=== PATIENT | female | born 1970 | race Caucasian/White ===

== ENCOUNTER 2016-07-26 09:23 | Emergency (ER) | payer OTHER ==
[~2016-07-26] VITALS: Ht 162.6 cm; Wt 82.2 kg
[~2016-07-26 09:23] MED LIST: ASCO1CAP3 PO; CALC-354 PO; CITA20TA4 PO; CYCL10TA6 PO; DICL75TA2 PO; SNT/10 PO
[2016-07-26 09:29] VITALS: TEMP 36.9; Ht 162.6 cm; Wt 82.2 kg
[2016-07-26] MEDS ORDERED: ALBUT/IPRATROP 3MG/0.5MG NEB 3 ML VIAL INH STA (09:45)
[2016-07-26] MEDS ORDERED: IBUPROFEN 600 MG TAB PO STA (09:45)
--- NOTE | 2016-07-26 09:50 | EMERGENCY ROOM VISIT NOTE ---
History Report prepared by Rosa: Ada Dunn Under the Supervision of: Dr. Lucian Bentley D.O. First contact with patient: 09:40 Chief Complaint: SORETHROAT Stated Complaint: COLD LIKE SYMPTOMS History of Present Illness The patient is a 45 year old female who presents to the Emergency Room with complaints of a persistent sore throat that began last week. She also complaints of a cough and chills. She has been taking over the counter cough medicine but did not take anything for her pain today. The patient's grandson was recently diagnosed with strep and her daughter was recently hospitalized for pneumonia. Past medical history includes asthma and a lung nodule. She is a former smoker. Denies runny nose, fever, nausea, vomiting, or other complaints. Source of History: patient Onset: last week Position: throat Quality: other (sore) Timing: other (persistent) Associated Symptoms: + chills, + cough, No fevers, No nausea, No vomiting Review of Systems See HPI for pertinent positives & negatives. A total of 10 systems reviewed and were otherwise negative. Past Medical & Surgical Medical Problems: (1) Carpal Tunnel Syndrome (2) Cervicalgia (3) Fracture of distal fibula Surgical Problems: (1) History of hysterectomy (2) Hx of cholecystectomy Family History No pertinent family history stated. Social History Smoking Status: Former Smoker Alcohol Use: occasionally Drug Use: none Occupation Status: employed Current/Historical Medications Scheduled Albuterol Hfa (Ventolin Hfa), 2 PUFFS INH BID Amoxicillin & Pot Clavulanate (Augmentin 875-125 mg), 875 MG PO BID Ascorbic Acid (Vitamin C), 500 MG PO DAILY Calcium Carbonate-Cholecalcife (Caltrate 600+D), 1 TAB PO DAILY Cetirizine HCl (Ra Cetirizine), 1 TAB PO DAILY Citalopram Hydrobromide (Citalopram Hydrobromide), 20 MG PO DAILY Cyanocobalamin (Cyanocobalamin), 1 DOSE SQ MONTHLY Diclofenac Sodium (Voltaren), 75 MG PO BID Ergocalciferol (Vitamin D), 1 CAP PO WK Fluticasone Prop/Salmeterol (Advair Diskus 250/50 60 Dose), 1 PUFF INH Q12 Trazodone Hcl (Trazodone), 25-50 MG PO HS Zaleplon (Sonata), 20 MG PO HS Scheduled PRN Oxycodone Immediate Rel Tab (Roxicodone Ir), 1-2 TAB PO Q4H PRN for Severe Pain Allergies Coded Allergies: No Known Allergies (Verified , 07/26/16) Physical Exam Vital Signs Date Time Temp Pulse Resp B/P Pulse Ox O2 Delivery O2 Flow Rate FiO2 07/26/16 11:42 75 18 118/76 07/26/16 10:45 82 16 115/85 96 Room Air 07/26/16 09:29 98 Room Air 07/26/16 09:29 36.9 86 17 123/85 97 Room Air Physical Exam GENERAL: Patient is awake, alert, and in no acute distress. Patient is resting comfortably and showing no signs of anxiety EYES: The conjunctivae are clear. The pupils are round and reactive. EARS, NOSE, MOUTH AND THROAT: Mucous membranes are moist. TMs are clear bilaterally. Nares are patent. Mild erythema in the posterior oropharynx. NECK: Mild anterior tenderness but no swelling and no significant cervical adenopathy. RESPIRATORY: Normal respiratory effort is noted there is no evidence of wheezing rhonchi or rales CARDIOVASCULAR: Regular rate and rhythm noted there no murmurs rubs or gallops normal S1 normal S2 GASTROINTESTINAL: The abdomen is soft. Bowel sounds are present in all quadrants. Abdomen is nontender MUSCULOSKELETAL/EXTREMITIES: There is no evidence of gross deformity full range of motion is noted in the hips and shoulders SKIN: There is no obvious evidence of any rash. There are no petechiae, pallor or cyanosis noted. NEUROLOGIC: Patient is awake alert and oriented x3 Medical Decision & Procedures ER Provider Diagnostic Interpretation: Radiology results as stated below per my review and radiologist interpretation: SOFT TISSUE NECK TECHNIQUE: AP and lateral soft tissue neck FINDINGS: Mild prominence of the submandibular soft tissues. No distention of the hypopharynx. The epiglottis is normal. Glottic and subglottic regions are unremarkable. IMPRESSION: Mild fullness of the submandibular soft tissues. Otherwise negative study Electronically signed by: Sukumar Arreola M.D. 07/26/2016 11:12 AM Dictated Date/Time: 07/26/2016 11:11 AM TWO VIEW CHEST CLINICAL HISTORY: Cough. FINDINGS: PA and lateral chest radiographs are obtained. No prior studies are available for comparison at the time of dictation. The cardiomediastinal silhouette is unremarkable. The lungs and pleural spaces are clear. There is no pneumothorax. The bony thorax appears intact. Cholecystectomy clips are noted in the right upper quadrant. IMPRESSION: No active disease in the chest. Electronically signed by: Jan Waggoner M.D. 07/26/2016 11:11 AM Dictated Date/Time: 07/26/2016 11:11 AM Medications Administered Medications (Trade) Dose Ordered Sig/Erwin Route Start Time Stop Time Status Last Admin Dose Admin Albuterol/ Ipratropium (Duoneb) 3 ml NOW STAT INH 07/26/16 09:45 07/26/16 09:47 DC 07/26/16 10:22 3 ML Ibuprofen (Motrin Tab) 600 mg NOW STAT PO 07/26/16 09:45 07/26/16 09:47 DC 07/26/16 10:44 600 MG Amoxicillin/ Clavulanate Potassium (Augmentin Tab) 875 mg ONE ONCE PO 07/26/16 11:45 07/26/16 11:46 DC 07/26/16 12:12 875 MG ED Course 0942: The patient was evaluated in room B8. A complete history and physical examination were performed. 0945: Ordered Ibuprofen 600 mg PO, DuoNeb 3 ml INH. 1145: Ordered Augmentin Tab 875 mg PO. 1144: Upon reevaluation, the patient is resting comfortably. I discussed the results and treatment plan with the patient. She verbalized agreement of the treatment plan. The patient was discharged home. Medical Decision Prior records/ancillary studies reviewed. Triage Nursing notes reviewed. The patient's history was concerning for a sore throat. Differential diagnosis: Etiologies such as viral syndrome, tonsillitis, streptococcal pharyngitis, mononucleosis, peritonsillar abscess, retropharyngeal abscess, otitis, pneumonia , influenza, as well as others were entertained. The patient is a 45-year-old female who presented to the emergency department for an evaluation of sore throat. Her pain was worsened with any swallowing. Her posterior oral pharynx did not appear to show significant swelling or exudate. X-ray showed some vague soft tissue swelling in the submandibular tissues but she did not appear to have signs of Rolan's angina on physical exam. She did not have protrusion of the tongue or significant tenderness in that region. The patient did not have signs of epiglottitis on x-ray. The patient was started on antibiotics in the emergency department. I discussed the patient's radiographic studies with her. She was encouraged to continue taking Motrin and Tylenol as directed for mild pain. She was also encouraged to drink plenty clear liquids. She was also encouraged to follow-up with her family doctor within the next few days for reevaluation but return to the emergency department immediately if symptoms change worsen or if the need arises. Impression Primary Impression: Pharyngitis Scribe Attestation The scribe's documentation has been prepared under my direction and personally reviewed by me in its entirety. I confirm that the note above accurately reflects all work, treatment, procedures, and medical decision making performed by me. Departure Information Dispostion Home / Self-Care Prescriptions Oxycodone Immediate Rel Tab (ROXICODONE IR) 5 Mg Tab 1-2 TAB PO Q4H Y for Severe Pain, #15 TAB Prov: Lucian Bentley, DO 07/26/16 Amoxicillin & Pot Clavulanate (Augmentin 875-125 mg) 1 Tab Tab 875 MG PO BID for 7 Days, #14 TAB Prov: Lucian Bentley, DO 07/26/16 Referrals No Doctor, Assigned (PCP) Patient Instructions ED Strep Pharyngitis [place], My [facility] Additional Instructions Follow-up with your family for reevaluation. Rest and avoid any strenuous activity. Drink plenty clear liquids. Continue using Motrin and Tylenol as directed for mild pain. Return to the emergency department if symptoms worsen or if need arises. Problem Qualifiers Primary Impression: Pharyngitis Pharyngitis/tonsillitis etiology: unspecified etiology Qualified Codes: J02.9 - Acute pharyngitis, unspecified
[2016-07-26 10:45] VITALS: O2SAT 96
[2016-07-26] MEDS ORDERED: TRAZ50TA35 PO (10:50)
[2016-07-26] MEDS ORDERED: ADVIN25/60 INH (10:50)
[2016-07-26] MEDS ORDERED: VNTHFA/IN INH (10:50)
[2016-07-26] MEDS ORDERED: VTMD PO (10:50)
[2016-07-26] MEDS ORDERED: [UNRECOGNIZED DRUG - CODE] PO (10:50)
[2016-07-26] MEDS ORDERED: CYNI1000 SQ (10:50)
--- NOTE | 2016-07-26 11:13 | DIAGNOSTIC IMAGING REPORT ---
TWO VIEW CHEST CLINICAL HISTORY: Cough. FINDINGS: PA and lateral chest radiographs are obtained. No prior studies are available for comparison at the time of dictation. The cardiomediastinal silhouette is unremarkable. The lungs and pleural spaces are clear. There is no pneumothorax. The bony thorax appears intact. Cholecystectomy clips are noted in the right upper quadrant. IMPRESSION: No active disease in the chest. Electronically signed by: Jan Waggoner M.D. 07/26/2016 11:11 AM Dictated Date/Time: 07/26/2016 11:11 AM
--- NOTE | 2016-07-26 11:13 | DIAGNOSTIC IMAGING REPORT ---
SOFT TISSUE NECK TECHNIQUE: AP and lateral soft tissue neck FINDINGS: Mild prominence of the submandibular soft tissues. No distention of the hypopharynx. The epiglottis is normal. Glottic and subglottic regions are unremarkable. IMPRESSION: Mild fullness of the submandibular soft tissues. Otherwise negative study Electronically signed by: Sukumar Arreola M.D. 07/26/2016 11:12 AM Dictated Date/Time: 07/26/2016 11:11 AM
[2016-07-26] MEDS ORDERED: OXYC1TAB3 PO (11:37)
[2016-07-26] MEDS ORDERED: AMOX875T PO (11:37)
[2016-07-26 11:42] VITALS: BP 118/76; PULSE 75
[2016-07-26] MEDS ORDERED: AMOXICILLIN/CLAVULANATE TAB 875 MG TAB PO ONE (11:45)
== END 2016-07-26 12:15 | disposition home or self-care (01) ==
LOC: C.EDB 09:25
DX: J02.9 Acute pharyngitis, unspecified (principal); Z87.891 Personal history of nicotine dependence; Z79.899 Other long term (current) drug therapy

== ENCOUNTER 2024-02-18 05:51 | Inpatient (IN) ==
--- NOTE | 2024-01-16 13:27 | PAT Medication Instructions ---
Medication Instructions Date of Service January 16, 2024 Home Medications Medication Instructions Recorded gabapentin 600 mg tablet 600 mg PO TID #90 tabs 05/22/23 meloxicam 15 mg tablet 15 mg PO DAILY #30 tabs 05/29/23 pregabalin 150 mg capsule 150 mg PO BID #60 caps 12/11/23 Medication List: acetaminophen 500 mg capsule 1,500 mg PO DIRECTED PRN Pain calcium carbonate 600 mg-vitamin D3 5 mcg (200 unit) tablet 1 tab PO QAM cetirizine 10 mg tablet 10 mg PO QAM cholecalciferol (vitamin D3) 25 mcg (1,000 unit) tablet 25 mcg PO DAILY sertraline 100 mg tablet 100 mg PO QAM albuterol sulfate 90 mcg/actuation aerosol inhaler 2 puff inhalation .Q4-6H PRN Shortness Of Breath Or Wheezing gabapentin 600 mg tablet 600 mg PO TID meloxicam 15 mg tablet 15 mg PO DAILY pregabalin 150 mg capsule 150 mg PO BID MEDICATION INSTRUCTIONS: Continue as directed albuterol sulfate 90 mcg/actuation aerosol inhaler 2 puff inhalation .Q4-6H PRN Shortness Of Breath Or Wheezing (use if needed; BRING TO HOSPITAL) ASK your surgeon for instructions meloxicam 15 mg tablet 15 mg PO DAILY DO NOT take the morning of surgery calcium carbonate 600 mg-vitamin D3 5 mcg (200 unit) tablet 1 tab PO QAM cetirizine 10 mg tablet 10 mg PO QAM cholecalciferol (vitamin D3) 25 mcg (1,000 unit) tablet 25 mcg PO DAILY Take morning of surgery With a small sip of water, OTHERWISE NOTHING TO EAT OR DRINK AFTER MIDNIGHT: gabapentin 600 mg tablet 600 mg PO TID pregabalin 150 mg capsule 150 mg PO BID acetaminophen 500 mg capsule 1,500 mg PO DIRECTED PRN Pain sertraline 100 mg tablet 100 mg PO QAM Take evening before surgery gabapentin 600 mg tablet 600 mg PO TID pregabalin 150 mg capsule 150 mg PO BID acetaminophen 500 mg capsule 1,500 mg PO DIRECTED PRN Pain Other Notes If you have any questions please call us at [phone] or [phone] or [phone] or [phone]
--- NOTE | 2024-01-27 11:53 | Anesthesiology Consultation ---
Date of Service January 27, 2024 Assessment & Plan (1) Encounter for pre-operative examination: - Case discussed in detail with Dr. Allan who advised patient is acceptable to proceed. Chart Review Chart Review: Acceptable Risk for Surgery and Patient seen in Pre Admission Testing Teaching & Discussion Pre-Anesthesia Teaching/Discussion Notes: Instructed NPO after midnight before surgery, except medications with 15 cc of water. Medication instructions provided according to the PAT guidelines. History Surgery Operation Date: 02/18/24 07:15 Proposed Procedures p L5-S1 Transforminal Lumbar Interbody Fusion with Decompression and Posterior Instrumentation Fusion - Vidal Watters MD Height/Weight Height: 5 ft 4 in Weight: 92.5 kg Allergies Allergy/AdvReac Type Severity Reaction Status Date / Time No Known Allergies Allergy Verified 01/27/24 10:25 Medications Home Medications Medication Instructions Recorded Confirmed Last Taken acetaminophen 500 mg capsule 1,500 mg PO DIRECTED PRN Pain 01/10/20 01/27/24 01/09/20 18:00 calcium carbonate 600 mg-vitamin 1 tab PO QAM 01/10/20 01/27/24 11/06/21 D3 5 mcg (200 unit) tablet cetirizine 10 mg tablet 10 mg PO QAM 01/10/20 01/27/24 11/06/21 cholecalciferol (vitamin D3) 25 25 mcg PO DAILY 01/10/20 01/27/24 11/06/21 mcg (1,000 unit) tablet sertraline 100 mg tablet 100 mg PO QAM 01/10/20 01/27/24 11/06/21 albuterol sulfate 90 mcg/actuation 2 puff inhalation .Q4-6H PRN 11/07/21 01/27/24 Unknown aerosol inhaler Shortness Of Breath Or Wheezing gabapentin 600 mg tablet 600 mg PO TID #90 tabs 05/22/23 01/27/24 Unknown meloxicam 15 mg tablet 15 mg PO DAILY #30 tabs 05/29/23 01/27/24 Unknown Past Medical History Medical History Asthma rare use of rescue inhaler; uses ~once per month Depression GERD (gastroesophageal reflux disease) controlled, stable per pt Low back pain 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 Exercise / Class Metabolic Activity II 4-5 Yardwork/Stairs/Walk up hill (shortness of breath with one flight of stairs, ongoing for several years, denies change or worsening; denies chest discomfort (dyspnea with inclines reported at previous [facility] pul visits-pt lost to f/u 08/2022)) Past Family History Family History Other No family history of adverse response to anesthesia Past Surgical History Surgical History History of hysterectomy Hx of cholecystectomy Hx of colonoscopy Hx of tonsillectomy S/P appendectomy Past Anesthesia History No Hx of Anesthesia Complications and No Family Hx of Anesthesia Complications History of PONV No Hx of PONV and No Hx of Motion Sickness Social History Smoking Status: Former smoker Do You Dip or Chew Tobacco: No Smoking End Date: quit ~8 yrs ago Hx Alcohol Use: Yes alcohol intake frequency: a few times a week Hx Substance Use: No substance use type: does not use Review of Systems Snoring, denies witnessed apneas. Patient denies chest pain, fever, chills, cough, wheezing, or palpitations. Physical Exam Vital Signs Vitals BP 131/92 P 75 TEMP 97.9 SP02 97% on RA RESP 18 Physical Patient resting comfortably in chair in no acute distress, alert and oriented, responding appropriately throughout visit Full cervical extension range of motion without pain TMD< 3 finger breadths Mallampati Score 3 Dentition: upper partial plate and full lower denture Lungs: normal respiratory effort. Good air movement, clear throughout to auscultation, no adventitious breath sounds Cardiac: regular rate and rhythm, no murmurs noted Carotid arteries: negative bruit bilat Lab Results Anesthesia Preop Results Results Anesthesia Widget: 2 WBC 7.16 K/ul (4.8-10.8) 01/27/24 Hgb 14.6 g/dl (12.0-16.0) 01/27/24 Hct 42.8 % (37.0-47.0) 01/27/24 Plt 211 K/uL (130-400) 01/27/24 Na 140 mmol/L (136-145) 01/27/24 K 4.4 mmol/L (3.5-5.1) 01/27/24 Cl 105 mmol/L (98-107) 01/27/24 CO2 28 mmol/L (21-32) 01/27/24 BUN 14 mg/dl (6-23) 01/27/24 Creat 0.89 mg/dl (0.6-1.2) 01/27/24 Glucose Level 91 mg/dl (70-99(Fasting)) 01/27/24 PT 10.0 Seconds (9.0-12.0) 01/27/24 PTT 26 Seconds (21-31) 01/27/24 INR 0.9 (0.9-1.1) 01/27/24 Blood Type B Negative 01/27/24 Antibody Screen NEGATIVE 01/27/24 Testing Electrocardiogram Date: 01/27/24 NSR, rate 77 bpm Stress Test Date: 10/09/21 Dobutamine MPHR 110% Negative for inducible ischemia EF 55-59% Normal LV wall motion No significant valvular disease is present Other Testing Lung CT 05/08/23 Minimally ectatic ascending thoracic aorta 3.8 cm Negative
--- OUTSIDE RECORDS SUMMARY | 2024-02-18 05:57 | External Medical Summary | Summary of Care ---
Author Name Unknown Organization [facility] Address [address] [facility] [place] [address] Phone [phone] Care Team Providers Care Optical Mechanic Apprentice Name Role Phone Rebekah Dias Primary Care Provider Reason for Visit * Reason Onset Date Comments Re-Check Medication Administration 01/30/2024 Flu an d/or Pneumo Inj Encounter Details Date Type Department Care Team (Late st Contact Info) Description 01/30/2024 1:40 PM EDT Office Visit Family Practice [facility] [address] [place] [address] Rebekah Dias CRNP [address] [place] [address] Moderate persistent asthma without complication*; Gastroesophageal reflux disease without esophagitis; Chronic constipation; Fibromyalgia; Moderate episode of recurrent major depressive disorder (HCC); Need for prophylactic vaccination and inoculation against influenza Allergies No known active allergiesdocumented as of this encounter (statuses as of 01/30/2024) Medications Medication Sig Dispensed Refills Start Date End Date Status fluticasone (FLONASE) 50 MCG/ACT nasal spray Administer 2 Sprays into nostril in the morning. As needed . 03/25/2019 Active Albuterol Sulfate HFA 108 (90 Base) MCG/ACT Inhalation Aerosol Solution Inhale 2 Puffs by mouth every 4 hours as needed. 06/25/2021 Active Lansoprazole 30 MG Oral Capsule Delayed Release (Prevacid) TAKE 1 CAPSULE BY MOUTH EVERY DAY 1/2HR BEFORE BREAKFAST 90 Capsule 1 06/04/2023 Active DULoxetine HCl 60 MG Oral Capsule Delayed Release Particles (Cymbalta) TAKE 1 CAPSULE BY MOUTH IN THE MORNING. DO NOT CUT, CRUSH OR CHEW. 90 Capsule 1 06/04/2023 Active B-12 1000 MCG Sublingual Tablet Sublingual PLACE 1 TABLET UNDER THE TONGUE IN THE MORNING. 90 Tablet 3 08/16/2023 Active Trelegy Ellipta 100-62.5-25 MCG/ACT Aerosol Powder Breath Activated (Fluticasone-Umecli dinium-Vilanterol)I ndications:Moderate persistent asthma without complication Inhale 1 Puff by mouth in the morning. 180 Each 3 10/16/2023 Active Cetirizine HCl 10 MG Oral Tablet (ZyrTEC) TAKE 1 TABLET BY MOUTH EVERYDAY AT BEDTIME 90 Tablet 3 11/21/2023 Active Famotidine 20 MG Oral Tablet (Pepcid) TAKE 1 TABLET BY MOUTH IN THE MORNING AND BEFORE BEDTIME 180 Tablet 3 11/21/2023 Active Gabapentin 100 MG Oral Capsule (Neurontin) Take 1 Capsule by mouth in the morning and 1 Capsule before bedtime. 08/08/2022 Active Meloxicam 15 MG Oral Tablet (Mobic) Take 1 Tablet by mouth in the morning. As needed . 11/13/2023 Active D-1000 Extra Strength 25 MCG (1000 UT) Oral Tablet TAKE 1 TABLET BY MOUTH EVERY DAY IN THE MORNING 90 Tablet 1 12/06/2023 Active Docusate Sodium 100 MG Oral Capsule (Colace) TAKE 1 CAPSULE BY MOUTH IN THE MORNING AND BEFORE BEDTIME 60 Capsule 11 12/11/2023 Active Sucralfate 1 GM Oral Tablet (Carafate) TAKE 1 TABLET BY MOUTH FOUR TIMES A DAY 30 MINUTES BEFORE MEALS AND AT BEDTIME 120 Tablet 12/18/2023 Active Additional Information Patient taking differently: 1 g Oral QID(AM/NOON/PM/HS), As needed, Reported on 12/26/2023 busPIRone HCl 5 MG Oral Tablet (Buspar) TAKE 2 TABLETS BY MOUTH IN THE MORNING AND TAKE 2 TABLETS AT BEDTIME 120 Tablet 1 01/09/2024 Active documented as of this encounter (statuses as of 01/30/2024) Active Problems Problem Noted Date Diagnosed Date Plantar fasciitis of right foot 11/22/2023 Acute left ankle pain 10/16/2023 Osteopenia of necks of both femurs 07/12/2023 Other intervertebral disc displacement, lumbar r egion 07/12/2023 Moderate episode of recurrent major depressive d isorder 07/12/2023 Chronic constipation 03/14/2023 Gastroesophageal reflux disease without esophagi tis 10/13/2021 Chronic rhinitis 10/13/2021 History of tobacco abuse 10/13/2021 Obesity, Class I, BMI 30.0-34.9 (see actual BMI) 10/13/2021 Moderate persistent asthma without complication 10/13/2021 Screening for lipid disorders 03/10/2021 Left lower quadrant pain 03/10/2021 ENLARGEMENT LYMPH NODES 05/27/1998 Fibromyalgia documented as of this encounter (statuses as of 01/30/2024) Resolved Problems Problem Noted Date Diagnosed Date Resolved Date Other pulmonary eosinophilia , not elsewhere classified 10/13/2021 11/28/2022 Urge incontinence 01/17/2021 11/28/2022 documented as of this encounter (statuses as of 01/30/2024) Immunizations Name Administration Dates Next Due DTP Vaccine 09/27/1973, 1,09/27/1969,04/29,03/29/1969 Diptheria/Tetanus (Adult) 06/13/1977 Measles Vaccine 01/27/1970 Mumps Vaccine 08/09/1977 OPV - Polio Virus Vaccine (Oral) 978,09/27/1973,08/27/1972,02/27,10/28/1971,09/27/1970,09/27/1969 ,03/29/1969 PPD 12/02/2006,05/03/2006,05/27/1998 Pneumococcal Conjugate Vacci ne, 20-valent ([id number]) 04/02/2022 Pneumococcal Polysaccharide PPV23 (Pneumovax) 03/03/2019 Rubella Vaccine 02/27/1970 Seasonal Influenza Virus Vac cine, Unspecified Formulation 02/03/2020,03/03/2019,01/03/2016,01/19,01/12/2014 Seasonal Influenza, PF, 6 M & above, IM , (FluLaval or Fluzone) 03/14/2023,04/02/2022,02/03/2020,03/03 Seasonal Influenza, Quadriva lent, No Preserve, IM 01/06/2021 Seasonal Influenza, Trivalen t, (IIV3), PF, (Fluzone) 01/30/2024 TB Zara Test 04/12/1978,09/27/1973 TD - Tetanus/Diptheria (ADULT) 06/26/2018,2001 TDAP, Age 7 and older, IM (Adacel) 08/16/2015 Tetanus Toxid Adsorbed 09/02/1974 Zoster Vaccine Recombinant (Shingrix) 11/03/2020 ,08/22/2020 documented as of this encounter Social History Tobacco Use Types Packs/Day Years Used Date Smoking Tobacco: Former Cigarettes 2 50 0 04/29/1988 - 03/03/2014 Smokeless Tobacco: Never Alcohol Use Standard Drinks/Week Comments Yes 0 (1 standard drink = 0.6 oz pure alcohol) occasionally - 3 beers in one setting on saturdays PHQ-2 Answer Date Recorded PHQ Adult Total Score 0 04/02/2022 Hunger Vital Sign Answer Date Recorded Within the past 12 months, y ou worried that your food would run out before you got the money to buy more. Never true 04/02/20 22 Within the past 12 months, t he food you bought just didn't last and you didn't have money to get more. Never true 04/02/2022 Utilities Answer Date Recorded Do you have trouble paying y our heating, water, or electric bill? (Adult - for ages 18 years and over) Not on file 10/15/2023 Is your family able to pay t he heat, water, or electric bill? (Household - for ages 0-17 years) Not on file 10/15/2023 Does your family have access to good internet? (Household - for ages 0-17 years) Not on file 10/15/2023 Social Connections Answer Date Recorded How often do you feel lonely or isolated from those around you? (Adult - for ages 18 years and over) Not on file 10/15/2023 Sex and Gender Information Value Date Recorded Sex Assigned at Not on file Gender Identity Not on file Sexual Orientation Not on file Job Start Date Occupation Industry Not on file Not on file Not on file documented as of this encounter Last Filed Vital Signs Vital Sign Reading Time Taken Comments Blood Pressure 128/80 01/30/2024 1:29 PM EDT Pulse 88 01/30/2024 1:29 PM EDT Temperature - - Respiratory Rate - - Oxygen Saturation - - Inhaled Oxygen Concentration - - Weight 91.7 kg (202 lb 4 oz) 01/30/2024 1:29 PM EDT Height - - Body Mass Index 35.84 12/31/2023 12:32 PM EDT documented in this encounter Progress Notes * Easton Quintero LPN - 01/30/2024 1:50 PM EDT PRE - ADMINISTRATION DOCUMENTATION Are you experiencing any cold symptoms or fever? No Have you had Guillain-[place] Syndrome (an illness that causes paralysis) within the last 6 weeks? No Have you had the flu shot in the past? YES Have you ever had a reaction to the flu shot? No Easton Quintero LPN, 01/30/2024 1:50 PM Immunization Administration Documentation Time Out Procedure Performed: Yes Patient Identified (Ask Name/Date of ): Yes Does the patient have a fever greater than 101 degrees today? No Patient allergic to latex? No VFC Stock: No Injection(s) verified: Yes, Injection Name: Fluzone Verified Side and Site: Yes Verified Shot(s) with Parent(s)/Patient: Yes * Rebekah Dias CRNP - 01/30/2024 1:38 PM EDT Follow up Family Medicine Visit CC: Chief Complaint Patient presents with Re-Check History of Present Illness: Amber Mccullough is a 53 year old female presenting for 3 month follow up. GERD-on carafate. Pepcid and prevacid. Still has gerd. Takes gas x and it helps.She's does feel acid indigestion 3 times per week Egd NORMAL 12/2023 Mood is improved. On buspar and cymbalta. Denies si/hi. She takes meloxicam prn On gabapentin Scheduled for back surgery later this month Still bms every 4-5 days.Cramping. Denies diarrhea. Social History Socioeconomic History Marital status: Single Spouse name: Not on file Number of children: 1 Years of education: Not on file Highest education level: Not on file Occupational History Occupation: [employer] Tobacco Use Smoking status: Former Current packs/day: 0.00 Average packs/day: 2.0 packs/day for 50.0 years (100.1 ttl pk-yrs) Types: Cigarettes Start date: 04/29/1988 Quit date: 03/03/2014 Years since quittin.9 Smokeless tobacco: Never Vaping Use Vaping status: Never Used Substance and Sexual Activity Alcohol use: Yes Comment: occasionally - 3 beers in one setting on saturdays Drug use: No Sexual activity: Yes Partners: Male Other Topics Concern Not on file Social History Narrative 1 cat and 2 guinea pig in her home. No mold. Lives with boyfriend Lives in [place] Social Determinants of Health Financial Resource Strain: Not on file Food Insecurity: No Food Insecurity (04/02/2022) Hunger Vital Sign Worried About Running Out of Food in the Last Year: Never true Ran Out of Food in the Last Year: Never true Transportation Needs: Not on file Social Connections: Unknown (10/15/2023) Social Connections How often do you feel lonely or isolated from those around you? (Adult - for ages 18 years and over): Not on file Housing Stability: Not on file PMH: Past Medical History: Diagnosis Date Asthma Fibromyalgia Lymph node enlargement Myalgia and myositis Past Surgical History: Procedure Laterality Date BX LYMPH NODE-DEEP CERV 06/27/1997 benign COLONOSCOPY, DIAGNOSTIC (RECTUM) 09/14/2020 1-4mm polyp, internal hemorrhoids / biopies hyperplastic polyp/ recall 10 year / COLONOSCOPY FLEXIBLE PROXIMAL DIAGNOSTIC performed by Latosha Akins MD at ENDOSCOPY [facility] EGD, FLEXIBLE, DIAGNOSTIC 08/15/2023 large amount of food stomach/ESOPHAGOGASTRODUODENOSCOPY (EGD), FLEXIBLE, TRANSORAL, DIAGNOSTIC performed by Marce Jewell DO at ENDOSCOPY [facility] EGD, FLEXIBLE, DIAGNOSTIC 12/31/2023 normal/ESOPHAGOGASTRODUODENOSCOPY (EGD), FLEXIBLE, TRANSORAL, DIAGNOSTIC performed by Marce Jewell DO at ENDOSCOPY [facility] ND APPENDECTOMY 2020 REMOVAL OF TONSILS, AGE 12+ 08/07/2001 REMOVE GALLBLADDER 09/27/2000 VAGINAL HYSTERECTOMY, W/TUBE/OVARY 04/29/1990 chronic pelvic pain Current Outpatient Medications Medication Sig Dispense Refill busPIRone HCl 5 MG Oral Tablet (Buspar) TAKE 2 TABLETS BY MOUTH IN THE MORNING AND TAKE 2 TABLETS AT BEDTIME 120 Tablet 1 Sucralfate 1 GM Oral Tablet (Carafate) TAKE 1 TABLET BY MOUTH FOUR TIMES A DAY 30 MINUTES BEFORE MEALS AND AT BEDTIME (Patient taking differently: Take 1 Tablet by mouth in the morning and 1 Tablet at noon and 1 Tablet in the evening and 1 Tablet before bedtime. As needed .) 120 Tablet 0 Docusate Sodium 100 MG Oral Capsule (Colace) TAKE 1 CAPSULE BY MOUTH IN THE MORNING AND BEFORE BEDTIME 60 Capsule 11 D-1000 Extra Strength 25 MCG (1000 UT) Oral Tablet TAKE 1 TABLET BY MOUTH EVERY DAY IN THE MORNING 90 Tablet 1 Gabapentin 100 MG Oral Capsule (Neurontin) Take 1 Capsule by mouth in the morning and 1 Capsule before bedtime. Meloxicam 15 MG Oral Tablet (Mobic) Take 1 Tablet by mouth in the morning. As needed . Cetirizine HCl 10 MG Oral Tablet (ZyrTEC) TAKE 1 TABLET BY MOUTH EVERYDAY AT BEDTIME 90 Tablet 3 Famotidine 20 MG Oral Tablet (Pepcid) TAKE 1 TABLET BY MOUTH IN THE MORNING AND BEFORE BEDTIME 180 Tablet 3 Trelegy Ellipta 100-62.5-25 MCG/ACT Aerosol Powder Breath Activated (Iwzprrlhhuv-Noqydajkavxl-Vhxowgwzgf) Inhale 1 Puff by mouth in the morning. 180 Each 3 B-12 1000 MCG Sublingual Tablet Sublingual PLACE 1 TABLET UNDER THE TONGUE IN THE MORNING. 90 Tablet 3 DULoxetine HCl 60 MG Oral Capsule Delayed Release Particles (Cymbalta) TAKE 1 CAPSULE BY MOUTH IN THE MORNING. DO NOT CUT, CRUSH OR CHEW. 90 Capsule 1 Lansoprazole 30 MG Oral Capsule Delayed Release (Prevacid) TAKE 1 CAPSULE BY MOUTH EVERY DAY 1/2HR BEFORE BREAKFAST 90 Capsule 1 Albuterol Sulfate HFA 108 (90 Base) MCG/ACT Inhalation Aerosol Solution Inhale 2 Puffs by mouth every 4 hours as needed. fluticasone (FLONASE) 50 MCG/ACT nasal spray Administer 2 Sprays into nostril in the morning. As needed . No current facility-administered medications for this visit. Review of patient's allergies indicates: No Known Allergies Most Recent Immunizations Administered Date(s) Administered DTP Vaccine 09/27/1973 Diptheria/Tetanus (Adult) 06/13/1977 Measles Vaccine 01/27/1970 Mumps Vaccine 08/09/1977 OPV - Polio Virus Vaccine (Oral) 06/13/1977 PPD 12/02/2006 Pneumococcal Conjugate Vaccine, 20-valent ([id number]) 04/02/2022 Pneumococcal Polysaccharide PPV23 (Pneumovax) 03/03/2019 Rubella Vaccine 02/27/1970 Seasonal Influenza Virus Vaccine, Unspecified Formulation 02/03/2020 Seasonal Influenza, PF, 6 M & above, IM , (FluLaval or Fluzone) 03/14/2023 Seasonal Influenza, Quadrivalent, No Preserve, IM 01/06/2021 TB Zara Test 04/12/1978 TD - Tetanus/Diptheria (ADULT) 06/26/2018 TDAP, Age 7 and older, IM (Adacel) 08/16/2015 Tetanus Toxid Adsorbed 09/02/1974 Zoster Vaccine Recombinant (Shingrix) 11/03/2020 Review of Systems: Review of Systems Constitutional: Negative for fatigue and fever. Respiratory: Negative for shortness of breath. Cardiovascular: Negative for chest pain. Gastrointestinal: Positive for abdominal pain and constipation. Negative for diarrhea, nausea and vomiting. GERD 3 TIMES WEEKLY Musculoskeletal: Positive for back pain. Psychiatric/Behavioral: Negative for dysphoric mood and sleep disturbance. The patient is not nervous/anxious. Physical Exam: BP 128/80 | Pulse 88 | Wt 91.7 kg (202 lb 4 oz) | BMI 35.84 kg/m | BSA 2.02 m Physical Exam HENT: Head: Normocephalic. Eyes: Pupils: Pupils are equal, round, and reactive to light. Cardiovascular: Rate and Rhythm: Normal rate and regular rhythm. Pulmonary: Effort: Pulmonary effort is normal. Breath sounds: Normal breath sounds. Abdominal: General: Bowel sounds are normal. Palpations: Abdomen is soft. Tenderness: There is generalized abdominal tenderness and tenderness in the right lower quadrant and left lower quadrant. Musculoskeletal: General: Normal range of motion. Cervical back: Normal range of motion. Neurological: General: No focal deficit present. Mental Status: She is alert and oriented to person, place, and time. Psychiatric: Mood and Affect: Mood normal. Behavior: Behavior normal. Thought Content: Thought content normal. Judgment: Judgment normal. Assessment and Plan: 1. Moderate persistent asthma without complication stable 2. Gastroesophageal reflux disease without esophagitis S/p egd and negative Continue carafate, pepcid and prevacid 3. Chronic constipation Ongoing issue Referral back to gi 4. Fibromyalgia STALE 5. Moderate episode of recurrent major depressive disorder (HCC) STABLE 6. Chronic low back pain Scheduled for surgery end of January 7. Need for flu shot I have advised the patient to call our office incase of any worsening or new symptoms. I spent a total of 20-29 minutes (exact time 25 mins) on the date of service in preparation, delivery, and documentation of the care provided to Amber Mccullough excluding any time spent in the performance of separately billed services. Betsy, JOSE, CL [facility] documented in this encounter Miscellaneous Notes * Addendum Note - Easton Quintero LPN - 01/30/2024 1:51 PM EDTAddended by: EASTON QUINTERO on: 01/30/2024 01:51 PM Modules accepted: Orders documented in this encounter Plan of Treatment Upcoming Encounters Date Type Department Care Team (Late st Contact Info) Description 05/01/2024 8:00 AM EST Office Visit Family Practice [facility] [address] [place] [address] Rebekah Dias CRNP [address] [place] [address] 06/17/2024 1:00 PM EST Office Visit Gastroenterology, [facility] [address] [address] Renetta Solis CRNP [address] [address] Scheduled Procedures Name Priority Associated Diagnoses Date/Ti me COLONOSCOPY FLEXIBLE PROXIMAL DIAGNOSTIC Recall History of colon polyps Health Maintenance Due Date Last Done Comments Hepatitis C Screening 1986 Hepatitis B Vaccine (1 of 3 - 19+ 3-dose series) 12/20/1987 Cologuard 2013 Fecal Occult Blood Test 2013 Sigmoidoscopy 2013 Depression Monitoring 04/02/2023 04/02/2022 COVID-19 Vaccine ( season) 2023 Mammogram 12/26/2024 12/27/2023, 08/28, 09/17/2022, Additional history exists Diabetes Screening 10/15/2026 10/16/2023, 0 08/29/2022, 06/21/2021, Additional history exists DTap/Tdap Vaccines (8 - Td or Tdap) 06/26/2028 06/26/2018, 08/16/2015, 03/24/2002, Additional history exists Lipid Panel 10/15/2028 10/16/2023, 05/0 06/2022, 03/03/2019 Colonoscopy 09/14/2030 09/14/2020, 09/14/2020 Colorectal Cancer Screening 09/14/2030 Zoster Vaccines Completed 11/03/2020, 08/22/2020 Pneumococcal Vaccine: Pediatrics (0 to 5 Years) and At-Risk Patients (6 to 64 Years) Completed 04/02/2022, 03/03/2019 Lung Cancer Screening Completed 05/08/2023 , 10/19/2021, 10/09/2017, Additional history exists Influenza Vaccine (FLU shot) Completed 06/2023, 03/14/2023, 04/02/2022, Additional history exists HPV (Gardasil) Vaccine Aged Out No lo nger eligible based on patient's age to complete this topic MENINGOCOCCAL (MENACTRA/MENVEO) Aged Out No longer eligible based on patient's age to complete this topic documented as of this encounter Medical Devices Not on filedocumented as of this encounter Visit Diagnoses Diagnosis Moderate persistent asthma without complication- Primary Unspecified asthma Gastroesophageal reflux disease without esophagitis Esophageal reflux Chronic constipation Unspecified constipation Fibromyalgia Mylagia and myositis, unspecified Moderate episode of recurrent major depressive disorder (HCC) Need for prophylactic vaccination and inoculation against influenza documented in this encounter Care Teams Optical Mechanic Apprentice Relationship Specialty Start Date End Date Rebekah Dias CRNP [address] [address] PCP - General Nurse Practitioner 08/29/22 documented as of this encounter"
--- OUTSIDE RECORDS SUMMARY | 2024-02-18 05:57 | External Medical Summary | Summary of Care ---
Author Name Unknown Organization [facility] Address [address] [facility] [place] [address] Phone [phone] Care Team Providers Care Painter Hand Name Role Phone Rebekah Dias Primary Care Provider Reason for Visit * Reason Onset Date Comments Re-Check Medication Administration 01/30/2024 Flu an d/or Pneumo Inj Encounter Details Date Type Department Care Team (Late st Contact Info) Description 01/30/2024 1:40 PM EDT Office Visit Family Practice [facility] [address] [place] [address] Rebekah Dias CRNP [address] [facility] [place] [address] Moderate persistent asthma without complication*; Gastroesophageal reflux [...] PPD 12/02/2006,05/03/2006,05/27/1998 Pneumococcal Conjugate Vacci ne, 20-valent ([id number]) 04/02/2022 Pneumococcal Polysaccharide PPV23 (Pneumovax) 03/03/2019 Rubella [...] symptoms or fever? No Have you had Guillain-[place] Syndrome (an illness that causes paralysis) within [...] No mold. Lives with boyfriend Lives in [place] Social Determinants of Health Financial Resource Strain: [...] performed by Latosha Akins MD at ENDOSCOPY [facility] EGD, FLEXIBLE, DIAGNOSTIC 08/15/2023 large amount of food stomach/ESOPHAGOGASTRODUODENOSCOPY (EGD), FLEXIBLE, TRANSORAL, DIAGNOSTIC performed by Marce Jewell DO at ENDOSCOPY [facility] EGD, FLEXIBLE, DIAGNOSTIC 12/31/2023 normal/ESOPHAGOGASTRODUODENOSCOPY (EGD), FLEXIBLE, TRANSORAL, DIAGNOSTIC performed by Marce Jewell DO at ENDOSCOPY [facility] [place] APPENDECTOMY 2020 REMOVAL OF TONSILS, AGE 12+ [...] Ellipta 100-62.5-25 MCG/ACT Aerosol Powder Breath Activated (Ahnevhgiigl-Bcphniosjixq-Hsxpncvbuf) Inhale 1 Puff by mouth in the [...] 06/13/1977 PPD 12/02/2006 Pneumococcal Conjugate Vaccine, 20-valent ([id number]) 04/02/2022 Pneumococcal Polysaccharide PPV23 (Pneumovax) 03/03/2019 Rubella [...] of separately billed services. Betsy, JOSE, CL [facility] documented in this encounter Miscellaneous Notes * Addendum Note - Easton Quintero LPN - 01/30/2024 1:51 PM EDTAddended by: EASTON QUINTERO on: 01/30/2024 01:51 PM Modules accepted: Orders documented in this encounter Plan of Treatment Scheduled Procedures Name Priority Associated Diagnoses Date/Ti [...] Additional history exists Lipid Panel 10/15/2028 10/16/2023, 06/2022, 03/03/2019 Colonoscopy 09/14/2030 09/14/2020, 09/14/2020 Colorectal [...] influenza documented in this encounter Care Teams Painter Hand Relationship Specialty Start Date End Date Rebekah Dias CRNP [address] [id number] PCP - General Nurse Practitioner 08/29/22 documented as of this encounter"
--- OUTSIDE RECORDS SUMMARY | 2024-02-18 05:57 | External Medical Summary | Summary of Care ---
Author Name Unknown Organization [facility] Address [address] [facility] [place] [address] Phone [phone] Care Team Providers Care It Operations Analyst Name Role Phone Rebekah Cagle Primary Care Provider Reason for Visit * Reason Comments eRx-Medication Refill Encounter Details Date Type Department Care Team (Late st Contact Info) Description 02/16/2024 Refill Family Practice [facility] [address] [place] [phone] Rebekah Cagle CRNP [address] [place] [phone] Allergies No known active allergiesdocumented as of this encounter (statuses as of 02/17/2024) Medications Medication Sig Dispensed Refills Start Date End Date Status fluticasone (FLONASE) 50 MCG/ACT nasal spray Administer 2 Sprays into nostril in the morning. As needed . 03/25/2019 Active Albuterol Sulfate HFA 108 (90 Base) MCG/ACT Inhalation Aerosol Solution Inhale 2 Puffs by mouth every 4 hours as needed. 06/25/2021 Active B-12 1000 MCG Sublingual Tablet Sublingual PLACE 1 TABLET UNDER THE TONGUE IN THE MORNING. 90 Tablet 3 08/16/2023 Active Trelegy Ellipta 100-62.5-25 MCG/ACT Aerosol Powder Breath Activated (Fluticasone-Umec lidinium-Vilanter ol)Indications:Mo derate persistent asthma without complication Inhale 1 Puff [...] AT BEDTIME 120 Tablet 1 01/09/2024 Active Lansoprazole 30 MG Oral Capsule Delayed Release (Prevacid) TAKE 1 CAPSULE BY MOUTH EVERY DAY 1/2HR BEFORE BREAKFAST 90 Capsule 1 02/10/2024 Active DULoxetine HCl 60 MG Oral Capsule Delayed Release Particles (Cymbalta) TAKE 1 CAPSULE BY MOUTH IN THE MORNING. DO NOT CUT, CRUSH OR CHEW. 90 Capsule 3 02/17/2024 Active DULoxetine HCl 60 MG Oral Capsule Delayed Release Particles (Cymbalta) TAKE 1 CAPSULE BY MOUTH IN THE MORNING. DO NOT CUT, CRUSH OR CHEW. 90 Capsule 1 06/04/2023 02/17/20 24 Discontinued documented as of this encounter (statuses as of 02/17/2024) Active Problems Problem Noted Date Diagnosed Date [...] as of this encounter (statuses as of 02/17/2024) Resolved Problems Problem Noted Date Diagnosed Date Resolved Date Other pulmonary eosinophilia , not elsewhere classified 10/13/2021 11/28/2022 Urge incontinence 01/17/2021 11/28/2022 documented as of this encounter (statuses as of 02/17/2024) Immunizations Name Administration Dates Next Due PPD 12/02/2006,05/03/2006 Pneumococcal Conjugate Vacci ne, 20-valent ([id number]) 04/02/2022 Pneumococcal Polysaccharide PPV23 (Pneumovax) 03/03/2019 Seasonal Influenza Virus Vac cine, Unspecified Formulation 02/03/2020,03/03/2019,01/03/2016,01/19,01/12/2014 Seasonal Influenza, PF, 6 M & above, IM , (FluLaval or Fluzone) 03/14/2023,04/02/2022,02/03/2020,03/03 Seasonal Influenza, Quadriva lent, No Preserve, IM 01/06/2021 Seasonal Influenza, Trivalen t, (IIV3), PF, (Fluzone) 01/30/2024 TD - Tetanus/Diptheria (ADULT) 06/26/2018 TDAP, Age 7 and older, IM (Adacel) 08/16/2015 Zoster Vaccine Recombinant (Shingrix) 11/03/2020 ,08/22/2020 documented [...] on file documented as of this encounter Miscellaneous Notes * Telephone Encounter - Satish Sainz [facility] - 02/17/2024 5:42 PM EDTSigned Prescriptions: Disp Refills DULoxetine HCl 60 MG Oral Capsule Delayed *90 Cap*3 Sig: TAKE 1 CAPSULE BY MOUTH IN THE MORNING. DO NOT CUT, CRUSH OR CHEW.Authorizing Provider: REBEKAH CAGLE User: SATISH SAINZ documented in this encounter Plan of Treatment Upcoming Encounters Date Type Department Care Team (Late st Contact Info) Description 05/01/2024 8:00 AM EST Office Visit Family Practice [facility] [address] [place] [phone] Rebekah Cagle CRNP [address] [place] [address] 06/17/2024 1:00 PM EST Office Visit Gastroenterology, [facility] [address] [place] [phone] Renetta Solis CRNP [address] [place] [phone] Scheduled Procedures Name Priority Associated Diagnoses Date/Ti me COLONOSCOPY FLEXIBLE PROXIMAL DIAGNOSTIC Recall History of colon polyps Health Maintenance Due Date Last Done Comments Hepatitis C Screening 1986 Hepatitis B Vaccine (1 of 3 - 19+ 3-dose series) 12/20/1987 Cologuard 2013 Fecal Occult Blood Test 2013 Sigmoidoscopy 2013 Depression Monitoring 04/02/2023 04/02/2022 COVID-19 Vaccine ( season) 2023 Mammogram 12/26/2024 12/27/2023, 11/29, 09/17/2022, Additional history exists Diabetes Screening 10/15/2026 10/16/2023, 0 08/29/2022, 06/21/2021, Additional history exists DTap/Tdap Vaccines (8 - Td or Tdap) 06/26/2028 06/26/2018, 08/16/2015, 03/24/2002, Additional history exists Lipid Panel 10/15/2028 10/16/2023, 050 06/2022, 03/03/2019 Colonoscopy 09/14/2030 09/14/2020, 09/14/2020 Colorectal [...] Not on filedocumented as of this encounter Care Teams It Operations Analyst Relationship Specialty Start Date End Date Rebekah Cagle CRNP [address] [place] [address] PCP - General Nurse Practitioner 08/29/22 documented as of this encounter
--- OUTSIDE RECORDS SUMMARY | 2024-02-18 05:57 | External Medical Summary | Summary of Care ---
Author Name Unknown Organization [facility] Address [address] [facility] [place] [address] Phone [phone] Care Team Providers Care Ticket Printer Name Role Phone Rebekah Dias Primary Care Provider Reason for Visit * Reason Onset Date Comments Re-Check Medication Administration 01/30/2024 Flu an d/or Pneumo Inj Encounter Details Date Type Department Care Team (Late st Contact Info) Description 01/30/2024 1:40 PM EDT Office Visit Family Practice [facility] [address] [place] [phone] Rebekah Dias CRNP [address] [facility] [place] [address] Moderate persistent asthma without complication*; Gastroesophageal reflux [...] PPD 12/02/2006,05/03/2006,05/27/1998 Pneumococcal Conjugate Vacci ne, 20-valent ([id number]) 04/02/2022 Pneumococcal Polysaccharide PPV23 (Pneumovax) 03/03/2019 Rubella Vaccine 02/27/1970 Seasonal Influenza Virus Vac cine, Unspecified Formulation 02/03/2020,03/03/2019,01/03/2016,01/19,01/12/2014 Seasonal Influenza, PF, 6 M & above, IM , (FluLaval or Fluzone) 03/14/2023,04/02/2022,02/03/2020,03/03 Seasonal Influenza, Quadriva lent, No Preserve, IM 01/06/2021 TB Zara Test 04/12/1978,09/27/1973 TD - Tetanus/Diptheria [...] documented in this encounter Progress Notes * Eastno Quintero LPN - 01/30/2024 1:50 PM EDT PRE - ADMINISTRATION DOCUMENTATION Are you experiencing any cold symptoms or fever? No Have you had Guillain-[place] Syndrome (an illness that causes paralysis) within [...] Not on file Occupational History Occupation: [employer] Tobacco Use Smoking status: Former Current packs/day: [...] No mold. Lives with boyfriend Lives in [place] Social Determinants of Health Financial Resource Strain: [...] performed by Latosha Akins MD at ENDOSCOPY [facility] EGD, FLEXIBLE, DIAGNOSTIC 08/15/2023 large amount of food stomach/ESOPHAGOGASTRODUODENOSCOPY (EGD), FLEXIBLE, TRANSORAL, DIAGNOSTIC performed by Marce Jewell DO at ENDOSCOPY [facility] EGD, FLEXIBLE, DIAGNOSTIC 12/31/2023 normal/ESOPHAGOGASTRODUODENOSCOPY (EGD), FLEXIBLE, TRANSORAL, DIAGNOSTIC performed by Marce Jewell DO at ENDOSCOPY [facility] [place] APPENDECTOMY 2020 REMOVAL OF TONSILS, [...] Ellipta 100-62.5-25 MCG/ACT Aerosol Powder Breath Activated (Klnouodajnf-Knhduccailne-Ybneukoyzt) Inhale 1 Puff by mouth in the [...] 06/13/1977 PPD 12/02/2006 Pneumococcal Conjugate Vaccine, 20-valent ([id number]) 04/02/2022 Pneumococcal Polysaccharide PPV23 (Pneumovax) 03/03/2019 Rubella [...] of separately billed services. Betsy, JOSE, CL Formerly named [facility] documented in this encounter Miscellaneous Notes [...] 04/02/2023 04/02/2022 COVID-19 Vaccine ( season) 2023 Influenza Vaccine (FLU shot) (#1) 2023 03/14/2023, 04/02/2022, 01/06/2021, Additional history exists Mammogram 12/26/2024 12/27/2023, 08/28, 09/17/2022, Additional history [...] 05/08/2023 , 10/19/2021, 10/09/2017, Additional history exists HPV (Gardasil) Vaccine Aged [...] influenza documented in this encounter Care Teams Ticket Printer Relationship Specialty Start Date End Date Rebekah Dias CRNP [address] [place] [address] PCP - General Nurse Practitioner 08/29/22 documented as of this encounter"
--- OUTSIDE RECORDS SUMMARY | 2024-02-18 05:57 | External Medical Summary | Summary of Care ---
Author Name Unknown Organization [facility] Address [address] [facility] [place] [address] Phone [phone] Care Team Providers Care Nurse Examiner Name Role Phone Rebekah Cagle Primary Care Provider Reason for Visit * Reason Comments eRx-Medication Refill Encounter Details Date Type Department Care Team (Late st Contact Info) Description 02/09/2024 Refill Family Practice [facility] [address] [place] [phone] Rebekah Cagle CRNP [address] [place] [phone] Allergies No known active allergiesdocumented as of this encounter (statuses as of 02/10/2024) Medications Medication Sig Dispensed Refills Start Date End Date Status fluticasone (FLONASE) 50 MCG/ACT nasal spray Administer 2 Sprays into nostril in the morning. As needed . 03/25/2019 Active Albuterol Sulfate HFA 108 (90 Base) MCG/ACT Inhalation Aerosol Solution Inhale 2 Puffs by mouth every 4 hours as needed. 06/25/2021 Active DULoxetine HCl 60 MG Oral Capsule [...] BEFORE BREAKFAST 90 Capsule 1 02/10/2024 Active Lansoprazole 30 MG Oral Capsule Delayed Release (Prevacid) TAKE 1 CAPSULE BY MOUTH EVERY DAY 1/2HR BEFORE BREAKFAST 90 Capsule 1 06/04/2023 02/10/20 24 Discontinued documented as of this encounter (statuses as of 02/10/2024) Active Problems Problem Noted Date Diagnosed Date [...] as of this encounter (statuses as of 02/10/2024) Resolved Problems Problem Noted Date Diagnosed Date Resolved Date Other pulmonary eosinophilia , not elsewhere classified 10/13/2021 11/28/2022 Urge incontinence 01/17/2021 11/28/2022 documented as of this encounter (statuses as of 02/10/2024) Immunizations Name Administration Dates Next Due PPD 12/02/2006,05/03/2006 Pneumococcal Conjugate Vacci ne, 20-valent ([id number]) 04/02/2022 Pneumococcal Polysaccharide PPV23 (Pneumovax) 03/03/2019 Seasonal [...] money to buy more. Never true 04/02/20 Within the past 12 months, t he [...] Notes * Telephone Encounter - Satish Sainz RP - 02/10/2024 5:58 PM EDTSigned Prescriptions: Disp Refills Lansoprazole 30 MG Oral Capsule Delayed Re*90 Cap*1 Sig: TAKE 1CAPSULE BY MOUTH EVERY DAY 1/2HR BEFORE BREAKFASTAuthorizing Provider: REBEKAH CAGLE User: SATISH SAINZ documented in this encounter Plan of Treatment Upcoming Encounters Date Type Department Care Team (Late st Contact Info) Description 05/01/2024 8:00 AM EST Office Visit Family Practice [facility] [address] [place] [phone] Rebekah Cagle CRNP [address] [place] [phone] 06/17/2024 1:00 PM EST Office Visit Gastroenterology, [facility] [address] [place] [address] Renetta Solis CRNP [address] [place] [address] Scheduled Procedures Name Priority Associated Diagnoses Date/Ti [...] Additional history exists Lipid Panel 10/15/2028 10/16/2023, 0506/2022, 03/03/2019 Colonoscopy 09/14/2030 09/14/2020, 09/14/2020 Colorectal Cancer [...] filedocumented as of this encounter Care Teams Nurse Examiner Relationship Specialty Start Date End Date Rebekah Cagle CRNP [address] [place] [address] PCP - General Nurse Practitioner 08/29/22 documented as of this encounter
[2024-02-18] MEDS: ACETAMINOPHEN 500 MG TAB PO SCH (06:37)
[2024-02-18] MEDS: GABAPENTIN 600 MG DOSE PO SCH (06:37)
[2024-02-18] MEDS: LR 60ML/HR IV SCH (06:38)
[2024-02-18] MEDS: LR 15ML/HR IV SCH (06:38)
[2024-02-18] MEDS: METOCLOPRAMIDE HCL 10 MG TABLET PO SCH (06:38)
[2024-02-18] MEDS ORDERED: PROPOFOL IV EMULSION 10 MG/ML 20 ML VIAL IV ONE (06:52)
[2024-02-18] MEDS ORDERED: fentaNYL citrate PF 100 MCG/2 ML VIAL ONE (06:52)
[2024-02-18] MEDS ORDERED: ONDANSETRON INJ 2 MG/ML 2 ML VIAL ONE (06:52)
[2024-02-18] MEDS ORDERED: MIDAZOLAM HCL 1 MG/ML 2ML VIAL ONE (06:52)
[2024-02-18] MEDS ORDERED: LIDOCAINE 2% 2 ML VIAL/AMP(20MG/ML) INFIL ONE (06:52)
[2024-02-18] MEDS ORDERED: GLYCOPYRROLATE 0.2 MG/ML VIAL ONE (06:52)
[2024-02-18] MEDS ORDERED: DEXAMETHASONE SOD INJ 4 MG/ML VIAL ONE (06:52)
[2024-02-18] MEDS ORDERED: PROPOFOL IV EMULSION 10 MG/ML 100 ML VIAL IV ONE ×2 (06:54→09:50)
[2024-02-18] MEDS ORDERED: REMIFENTANIL HCL 1 MG VIAL IV ONE ×2 (07:00→12:08)
[2024-02-18] MEDS ORDERED: ATROPINE SULFATE 0.1 MG/ML 10ML SYR IV PRN (07:14)
[2024-02-18] MEDS ORDERED: ONDANSETRON INJ 2 MG/ML 2 ML VIAL IV PRN (07:14)
[2024-02-18] MEDS ORDERED: NALOXONE HCL 0.4 MG/1 ML VIAL/CARP IV PRN ×2 (07:14→14:29)
[2024-02-18] MEDS ORDERED: FLUMAZENIL 0.1 MG/1 ML 10 ML VIAL IV PRN (07:14)
[2024-02-18] MEDS ORDERED: ePHEDrine sulfate 50 MG/ML AMP IV PRN (07:14)
[2024-02-18] MEDS ORDERED: PROMETHAZINE HCL 6.25 MG in SODIUM CHLORIDE 0.9% 50 ML IV PRN (07:14)
--- NOTE | 2024-02-18 07:31 | History & Physical Bridge Note ---
Date of Service February 18, 2024 L5-S1 transforaminal decompression, interbody fusion, posterior fusion and instrumentation History & Physical Bridge Note I have examined the patient, reviewed the History & Physical and in the interval since the performance of the History & Physical I have noted the following ch anges of clinical significance: no changes noted
[2024-02-18] MEDS: ceFAZolin 2000MG 2,000 MG/15 ML SYR IV SCH ×2 (08:55→20:06)
[2024-02-18] MEDS ORDERED: ePHEDrine sulfate 50 MG/5 ML SYR ONE (09:50)
[2024-02-18] MEDS ORDERED: SUGAMMADEX SODIUM 200 MG/2 ML VIAL IV ONE (10:06)
[2024-02-18] MEDS: GELATIN SPONGE 12-7MM ONE (11:33)
[2024-02-18] MEDS: BUPIVACAINE/EPINEPHRINE 0.5% MPF 1:200,000 30 ML VIAL ONE (12:55)
[2024-02-18] MEDS ORDERED: ROCURONIUM BROMIDE 10 MG/ML 5 ML VIAL IV ONE (13:05)
[2024-02-18] MEDS ORDERED: HYDROmorphone INJ 2 MG/ML SYR/VIAL ONE (13:45)
[2024-02-18] MEDS: VANCOMYCIN HCL 1000MG/20ML VIAL ONE (14:01)
[2024-02-18] MEDS: THROMBIN 5000 UNITS KIT ONE (14:01)
[2024-02-18] MEDS: FLOSEAL HEMOSTATIC MATRIX 10ML TOP ONE (14:02)
[2024-02-18] MEDS: fentaNYL citrate PF 100 MCG/2 ML VIAL IV PRN (14:22)
--- NOTE | 2024-02-18 14:26 | Post Operative Brief Note ---
PG Immediate Post Op with CF Date of Surgery February 18, 2024 Pre & Post Diagnosis Operation Date: 02/18/24 07:15 Pre-Op Diagnosis: Lumbar Radiculopathy. Post-Op Diagnosis: Lumbar Radiculopathy. I identified the patient and participated in the time-out.: Yes Procedure Operation Date: 02/18/24 07:15 Actual Procedures p L5-S1 Transforminal Lumbar Interbody Fusion with Decompression and Posterior Instrumentation Fusion(Not Applicable) - Vidal Watters MD Surgeon Vidal Watters MD Insurance Sales Manager none Estimated Blood Loss 300 Findings Consistent with Post-Op Diagnosis Specimens Specimen Description: none per surgeon Drains Randolph Catheter (320ml out during procedure)
[2024-02-18] MEDS ORDERED: METOCLOPRAMIDE HCL INJ 5 MG/ML 2 ML VIAL IV PRN (14:29)
[2024-02-18] MEDS ORDERED: ACETAMINOPHEN 1,000 MG/100 ML VIAL IV PRN (14:29)
[2024-02-18] MEDS ORDERED: LORazepam 2 MG/1 ML VIAL IV PRN (14:29)
[2024-02-18] MEDS ORDERED: bisacodyL 10 MG SUPP PR PRN (14:29)
[2024-02-18] MEDS ORDERED: DO NOT ADMINISTER PNEUMOCOCCAL VACCINE PRN (14:29)
[2024-02-18] MEDS ORDERED: SOD PHOSPHATE/SOD BIPHOSPHATE ENEMA 132 ML BTL PR PRN (14:29)
[2024-02-18] MEDS ORDERED: FAMOTIDINE 20 MG TAB PO PRN (14:29)
[2024-02-18] MEDS ORDERED: DO NOT ADMINISTER FLU VACCINE PRN (14:29)
[2024-02-18] MEDS ORDERED: ONDANSETRON 4 MG OD TAB PO PRN (14:29)
[2024-02-18] MEDS ORDERED: LORazepam 0.5 MG TAB PO PRN (14:29)
[2024-02-18] MEDS ORDERED: diphenhydrAMINE Capsule 25 MG CAP PO PRN (14:29)
[2024-02-18] MEDS ORDERED: MAGNESIUM HYDROXIDE SUSP 30 ML UDC PO PRN (14:29)
[2024-02-18] MEDS ORDERED: ALBUTEROL HFA 8 GM INHALER INH PRN (14:38)
[2024-02-18] MEDS: HYDROmorphone INJ 1 MG/ML SYRINGE IV PRN (14:40)
--- NOTE | 2024-02-18 14:46 | Fluoroscopy Report ---
INTRAOPERATIVE RADIOGRAPHS CLINICAL HISTORY: L5-S1 spinal fusion. Fluoro time: 207 seconds Ka,r: 223.95 mGy FINDINGS: 8 spot fluoroscopic views of the lumbar spine are presented. There has been discectomy at L 5-S1 with laminectomy and posterior fusion at this level. Interpedicular screws are in place. The ort hopedic hardware appears intact. IMPRESSION: Intraoperative images from lumbar spinal fusion surgery as above. Electronically signed by: Jan Waggoner M.D. 02/18/2024 2:44 PM
--- NOTE | 2024-02-18 15:37 | Anesthesiology Progress Note ---
Date of Service February 18, 2024 Anesthesia Post Procedure Vital Signs Vital Signs: Temp Pulse Resp BP Pulse Ox O2 Del Method O2 Flow Rate 02/18/24 15:20 89 15 124/81 95 Nasal Cannula 4 02/18/24 15:10 91 H 11 L 128/82 97 Oxymask 4 02/18/24 15:00 87 18 126/83 98 Oxymask 6 02/18/24 14:50 82 17 109/76 95 Oxymask 6 02/18/24 14:40 82 18 110/71 95 Oxymask 6 02/18/24 14:30 79 14 119/90 98 Oxymask 8 02/18/24 14:20 36.5 C 93 H 14 131/101 H 98 Oxymask 8 02/18/24 06:23 36.8 C 79 18 145/99 H 94 Room Air Pain Intensity Lower Back: Pain Intensity: 5 Transfer of Care Handoff Completed per policy Notes Mental Status: alert / awake / arousable Patient Amnestic to Procedure: Yes Nausea / Vomiting: adequately controlled Pain: adequately controlled Airway Patency, RR, SpO2: stable & adequate BP & HR: stable & adequate Hydration State: stable & adequate Anesthetic Complications: no major complications apparent
[2024-02-18] MEDS: oxyCODONE/ACETAMINOPHEN 5mg/325mg TAB PO PRN (18:37)
[2024-02-18] MEDS: HYDROmorphone INJ 0.5 MG/0.5 ML SYR IV PRN (19:37)
--- NOTE | 2024-02-18 20:01 | Hospitalist Consultation ---
Date of Consultation February 18, 2024 Assessment & Plan (1) Status post lumbar spine surgery for decompression of spinal cord: VTE / bowel / pain management per primary ortho spine team (2) Depression: Continue sertraline Continue buspirone for anxiety (3) Lumbar radiculopathy: Continue pregabalin (switched from gabapentin as she notes no longer taking this) and duloxetine (4) GERD (gastroesophageal reflux disease): Switch lansoprazole to pantoprazole per hospital formulary Continue famotidine 20mg PO BID Carafate PRN (5) Asthma: Continue usual maintenance inhaler or hospital formulary equivalent Continue cetirizine for allergies (6) Constipation: Takes docusate at baseline. Senokot added by primary orthopedic team. Monitor closely as this has been an issue pre-operatively. Plan Thank you for the consult, we will continue to follow the patient History of Present Illness Reason for Consultation: surgery Attending Physician: Vidal Watters MD History of Present Illness Amber Mccullough is a 53 year old female POD#0 L5-S1 Transforminal Lumbar Interbody Fusion with Decompression and Posterior Instrumentation Fusion. No acute concerns or questions from the patient. Multiple medications updated from external pharmacy list on discussion with the patient. She reports not worsening or improvement of symptoms from pre-operatively. She notes left foot drop prior to her operation. Allergies Allergy/AdvReac Type Severity Reaction Status Date / Time No Known Allergies Allergy Verified 02/18/24 06:20 Home Medications Medication Instructions Recorded Confirmed Type acetaminophen 500 mg capsule 1,500 mg PO DIRECTED PRN Pain 01/10/20 02/18/24 History calcium 600 mg (as 1 tab PO QAM 01/10/20 02/18/24 History carbonate)-vitamin D3 5 mcg (200 unit) tablet cetirizine 10 mg tablet 10 mg PO QAM 01/10/20 02/18/24 History cholecalciferol (vitamin D3) 25 25 mcg PO DAILY 01/10/20 02/18/24 History mcg (1,000 unit) tablet sertraline 100 mg tablet (Zoloft) 100 mg PO QAM 01/10/20 02/18/24 History albuterol sulfate 90 mcg/actuation 2 puff inhalation .Q4-6H PRN 11/07/21 02/18/24 History aerosol inhaler Shortness Of Breath Or Wheezing gabapentin 600 mg tablet 600 mg PO TID #90 tabs 05/22/23 02/18/24 Rx meloxicam 15 mg tablet 15 mg PO DAILY #30 tabs 05/29/23 02/18/24 Rx buspirone 5 mg tablet 10 mg PO BID 02/18/24 02/18/24 History duloxetine 60 mg capsule,delayed 60 mg PO QAM 02/18/24 02/18/24 History release famotidine 20 mg tablet 20 mg PO BID 02/18/24 02/18/24 History fluticasone fur. 100 mcg-umeclid 1 inh inhalation QAM 02/18/24 02/18/24 History 62.5 mcg-vilant 25 mcg inhalat.powder (Trelegy Ellipta) lansoprazole 30 mg capsule,delayed 30 mg PO QAM 02/18/24 02/18/24 History release pregabalin 150 mg capsule 150 mg PO BID 02/18/24 02/18/24 History sucralfate 1 gram tablet 1 g PO ACHS PRN Heartburn 02/18/24 02/18/24 History Patient History Medical History (Updated 02/19/24 @ 07:06 by Lucas Zheng MD) Constipation GERD (gastroesophageal reflux disease) controlled, stable per pt Depression Lumbar disc herniation Low back pain Neuroforaminal stenosis of lumbosacral spine Asthma rare use of rescue inhaler; uses ~once per month Surgical History (Updated 02/18/24 @ 19:54 by Lucas Zheng MD) Hx of colonoscopy Hx of tonsillectomy S/P appendectomy History of hysterectomy Hx of cholecystectomy Family History Other No family history of adverse response to anesthesia Social History Smoking Status: Former smoker Tobacco Type: Cigarettes Smoking End Date: quit ~8 yrs ago; Second Hand Exposure: No; Do You Dip or Chew Tobacco: No; Tobacco Cessation Education Requested by Patient: No Hx Alcohol Use: Yes Hx Substance Use: No Preferred Language: Vincentian Communication Ability: Effective Visual Impairment: No Limitations Hearing Ability: Normal Commercial Coordinator Required: No Beliefs That Will Affect Care: None marital status: Single Current Living Situation: Significant Other current occupational status: employed current occupation: [employer] Other Information That Helps Us Care for You: No Feels Safe at Home: Yes Safety Concerns: Feels Safe At This Time Assistive Devices: Denture - Upper, Denture - Lower and Glasses Physical Exam Constitutional: WD/WN, vitals as above ENMT: external ear and nose normal, oropharynx normal Respiratory: normal respiratory effort, lungs clear to auscultation Cardiovascular: RRR, no murmur, no edema Gastrointestinal (Abdomen): normal bowel sounds, soft, nontender, no hepatosplenomegaly Skin: no rashes, warm and dry Neurologic: Foot drop on left side with decreased sensation on this side (patient reports similar to pre-op Psychiatric: A+Ox3, euthymic affect Results & Data Results & Data Vital Signs (Past 12 Hours) Vital Signs Temp Pulse Pulse Resp BP BP Pulse Ox 02/18/24 19:30 36.5 C 79 16 114/73 95 02/18/24 18:15 36.5 C 84 16 107/74 95 02/18/24 17:54 36.7 C 85 18 107/74 95 02/18/24 17:08 36.4 C L 82 16 112/75 95 02/18/24 16:38 02/18/24 16:38 36.8 C 84 16 129/80 98 02/18/24 15:45 78 18 129/82 94 02/18/24 15:30 36.6 C 77 20 124/79 94 02/18/24 15:20 89 15 124/81 95 02/18/24 15:10 91 H 11 L 128/82 97 02/18/24 15:00 87 18 126/83 98 02/18/24 14:50 82 17 109/76 95 02/18/24 14:40 82 18 110/71 95 02/18/24 14:30 79 14 119/90 98 02/18/24 14:20 36.5 C 93 H 14 131/101 H 98 O2 Del Method O2 Flow Rate 02/18/24 19:30 Nasal Cannula 1 02/18/24 18:15 Nasal Cannula 2 02/18/24 17:54 Room Air 02/18/24 17:08 Nasal Cannula 2 02/18/24 16:38 Nasal Cannula 2 02/18/24 16:38 Nasal Cannula 2 02/18/24 15:45 Nasal Cannula 2 02/18/24 15:30 Nasal Cannula 2 02/18/24 15:20 Nasal Cannula 4 02/18/24 15:10 Oxymask 4 02/18/24 15:00 Oxymask 6 02/18/24 14:50 Oxymask 6 02/18/24 14:40 Oxymask 6 02/18/24 14:30 Oxymask 8 02/18/24 14:20 Oxymask 8 PG Care Time/CCT Total # of Minutes Spent Total Time Spent with Patient: Total time spent is greater than 50% in coordination of care (as documented) at patient's floor/unit and/or counseling patient: Coding Level of Care Code 03517 IN/OBS CONSULT LVL 4,60M Diagnoses Status post lumbar spine surgery for decompression of spinal cord Z98.890 Depression F32.A Lumbar radiculopathy M54.16 GERD (gastroesophageal reflux disease) K21.9 Asthma J45.909 Constipation K59.00
[2024-02-18] MEDS: GABAPENTIN 600 MG TAB PO SCH (20:06)
[2024-02-18] MEDS: DOCUSATE SODIUM/SENNA 50/8.6MG TAB PO SCH (20:06)
[2024-02-18] MEDS ORDERED: ceFAZolin 1000MG 1,000 MG/7.5 ML SYR IV SCH (20:30)
[2024-02-18] MEDS: busPIRone 5 MG TAB PO SCH (22:13)
[2024-02-18] MEDS: FAMOTIDINE 20 MG TAB PO SCH (22:13)
[2024-02-18] MEDS: PANTOprazole 40 MG TAB PO SCH (22:14)
[2024-02-18] MEDS: PREGABALIN 150 MG CAP PO SCH (22:16)
[2024-02-19] MEDS: POLYETHYLENE (MIRALAX) 17 GM PACK PO SCH (05:43)
[2024-02-19 06:29] LABS: Hematocrit (blood only) 35.8 % (37.0-47.0); Mean Corpuscular Hemoglobin 30.7 pg (25.0-34.0); Mean Corpuscular Hgb Conc 33.5 g/dL (32.0-36.0); Mean Corpuscular Volume 91.6 fL (80.0-100.0); Platelet Count 233 K/uL (130-400); RDW Coefficient of Variation 12.8 % (11.5-14.5); RDW Standard Deviation 42.3 fL (36.4-46.3); Red Blood Count 3.91 M/uL (4.20-5.40); White Blood Count 11.73 K/ul (4.8-10.8)
[2024-02-19 07:09] LABS: Calcium 8.6 mg/dl (8.6-10.3); Creatinine Clr Calc Pharmacy 82.6 ml/min; Potassium 3.9 mmol/L (3.5-5.1)
[2024-02-19] MEDS: DULoxetine HCL 60 MG CAP PO SCH (08:51)
[2024-02-19] MEDS: CETIRIZINE HCL 10 MG TABLET PO SCH (08:51)
[2024-02-19] MEDS: UMECLIDINIUM/VILANTEROL 62.5/25MCG 7 PUFFS/INHALER INH SCH (08:52)
[2024-02-19] MEDS: FLUTICASONE FUROATE 100MCG 14 PUFFS/INHALER INH SCH (08:52)
[2024-02-19] MEDS: SERTRALINE HCL 100 MG TABLET PO SCH (08:53)
[2024-02-19] MEDS: DOCUSATE SODIUM 100 MG CAP PO SCH (09:00)
[2024-02-19] MEDS ORDERED: NON-FORMULARY MEDICATION (Fluticasone-Umeclidin-Vilanter [Trelegy Ellipta] 100-62.5-25 mcg INH SCH (09:00)
--- NOTE | 2024-02-19 12:19 | Orthopedic Progress Note ---
Date of Service February 19, 2024 Subjective Pt seen and examined, she has similar symptoms in her right lower extremity as she had before the surgery but perhaps slightly worse, no improvement in motor which was weakness in both ankle dorsiflexion. Incision with some limited drainage. Impression/plan: Will mobilize with physical therapy, we will organize for a AFO for the right lower extremity after follow-up in 2 weeks. Review of Systems All systems reviewed & are unremarkable except as noted in HPI & below. Physical Exam . Results & Data Results & Data Laboratory Results . Diagnostic Findings . PG Care Time/CCT Total # of Minutes Spent Total Time Spent with Patient: Total time spent is greater than 50% in coordination of care (as documented) at patient's floor/unit and/or counseling patient: Coding Level of Care Code 98498 Post Operative Follow-Up
--- NOTE | 2024-02-19 14:23 | Operative Report ---
PG Post Operative Report Pre & Post Diagnosis Operation Date: 02/18/24 07:15 Pre-Op Diagnosis: Lumbar Radiculopathy. Post-Op Diagnosis: Lumbar Radiculopathy. I identified the patient and participated in the time-out.: Yes Procedure Operation Date: 02/18/24 07:15 Actual Procedures p L5-S1 Transforminal Lumbar Interbody Fusion with Decompression and Posterior Instrumentation Fusion(Not Applicable) - Vidal Watters MD Surgeon Vidla Watters MD Watchmaker Apprentice none Estimated Blood Loss 300 Findings Consistent with Post-Op Diagnosis Specimens none Description of Procedure 1. L5-S1 posterior lumbar interbody fusion with laminectomy. (28797) 2. Left L5-S1 extraforaminal lumbar decompression you are needed for interbody fusion, removal of osteophyte and decompression of the exiting L5 nerve root in the foraminal and extraforaminal region. (97521) 3. L5-S1 posterior lumbar arthrodesis. (58946) 4. L5-S1 posterior nonsegmental instrumentation, NuVasive reline. (17327) 5. Insertion of intervertebral cage, NuVasive TLX20 expandable cage, 9 x 11 x 26 mm. (94008) 6. Products of decompression utilized for fusion purposes. (86219) Patient taken the operating room after adequate anesthesia, was placed prone on the Maximo frame, preprepped was performed, I brought in fluoroscopy and marked for the location of the incision midline. Prep and drape were performed, a began with a midline incision taken down through subcutaneous tissues down onto the interspinous region exposing the L5-S1 region bilaterally. From here the appropriate bony surfaces were exposed, and after doing so I brought in fluoroscopy and utilizes to insert the pedicle screws. High-speed bur was utilized to make the start point followed by gearshift probe and tapped concerning 6.5 millimeter screws at both the L5 and S1 level. With this completed, I then moved ahead with the decompression on the left side. This involves removal of the facets at L5-S1 on the left side, and then from there careful mobilization under fluoroscopic control with exposing the exiting L5 nerve root. Eventually I was able to locate the disc, and then exposed the extensive osteophyte compressing the L5 nerve root. The disc base was explored, monika were used to then remove the disc material and cartilage from the endplates in preparation for the eventual fusion. I then spent additional time removing the extensive osteophyte as noted on the CT scan and MRI compressing the L5 nerve root. This was then carefully removed using combination of curettes, pituitaries and actually a high-speed bur to thin and remove as much was safely possible decompressing the L5 nerve root. With this was completed, I then went through trials selecting size cage as noted, this was then inserted after inserting fusion tools first followed by the expandable cage and some additional materials within the cage. Posterior fusion materials were then placed on the right side involving the facet and lamina, posterolateral region, followed by then insertion of the rods to the screws with setscrews applied and torqued down properly. Operative site had been previously irrigated thoroughly, inspection at this time revealed no issues, bleeding had been controlled with combination of bipolar cautery and some Floseal. I then applied vancomycin powder and then closed the operative site with using 0 Vicryl sutures reattaching the supraspinous ligament were available, followed by additional layer of 0 Vicryl sutures 2-0 Vicryl sutures and angel for the skin. The patient tolerated procedure well was taken recovery room in satisfactory condition. I attest to the content of the Intraoperative Record and any orders documented therein. Any exceptions are noted below.
--- NOTE | 2024-02-19 14:43 | Hospitalist Progress Note ---
Date of Service February 19, 2024 Assessment & Plan (1) Status post lumbar spine surgery for decompression of spinal cord: Plan: VTE / bowel / pain management per primary ortho spine team -elevated WBC likely reactive from steroids -one episode of hemoptysis - likely from intubation, no throat pain or signs of other GI bleed, hgb is stable. - discussed with RN afternoon, no further episodes. Okay to monitor (2) Depression: Plan: Continue sertraline Continue buspirone for anxiety (3) Lumbar radiculopathy: Plan: Continue pregabalin (switched from gabapentin as she notes no longer taking this) and duloxetine (4) GERD (gastroesophageal reflux disease): Plan: Switch lansoprazole to pantoprazole per hospital formulary Continue famotidine 20mg PO BID Carafate PRN (5) Asthma: Plan: Continue usual maintenance inhaler or hospital formulary equivalent Continue cetirizine for allergies (6) Constipation: Plan: Takes docusate at baseline. Senokot added by primary orthopedic team. Monitor closely as this has been an issue pre-operatively. Plan Dispo: medically stable. Thank you for allowing us to participate in the care of this patient, medicine will sign off. Please reach out with any new questions or concerns Admission and Anticipated Discharge Date Admission Date: February 18, 2024 Subjective Patient seen earlier this morning, after breakfast. Patient is struggling with pain control but otherwise doing well. Passing gas since surgery but no BM yet - has issues with constipation normally no chest pain or shortness of breath. Tolerating diet Did have an episode of hemoptysis this morning - no throat pain, no further episodes. Review of Systems Review of Systems: All systems reviewed & are unremarkable except as noted in Subjective Physical Exam Physical Exam: General: NAD, VS as above Resp: normal respiratory effort, lungs clear to auscultation CV: RRR, no murmur, Abd: hypoactive bowel sounds, non tender, no hepatosplenomegaly Back: dressing c/d/i Extremities: Moves all extremities, no edema Neuro: A&O x3, Skin: intact, no lesions noted Results & Data Results & Data Vital Signs (Past 12 Hours) Vital Signs Temp Pulse Resp BP Pulse Ox O2 Del Method O2 Flow Rate 02/19/24 07:30 Nasal Cannula 2 02/19/24 06:16 98.2 F 91 H 16 134/84 96 Nasal Cannula 1 02/19/24 02:45 98.2 F 87 16 115/79 96 Nasal Cannula 1 Laboratory Results CBC and chemistry reviewed PG Care Time/CCT Total # of Minutes Spent Total Time Spent with Patient: Total time spent is greater than 50% in coordination of care (as documented) at patient's floor/unit and/or counseling patient: Coding Level of Care Code 61332 SUB INP/OBS CARE 2/35MIN Diagnoses Status post lumbar spine surgery for decompression of spinal cord Z98.890 Depression F32.A Lumbar radiculopathy M54.16 GERD (gastroesophageal reflux disease) K21.9 Asthma J45.909 Constipation K59.00
[2024-02-19] MEDS: ACETAMINOPHEN 500 MG TAB PO PRN (20:46)
[2024-02-20] MEDS: ONDANSETRON INJ 2 MG/ML 2 ML VIAL IV PRN (08:24)
[2024-02-20] MEDS: PROMETHAZINE 12.5 MG/50.5 ML BAG IV PRN (08:47)
[2024-02-20] MEDS: ALUMINUM/MAGNESIUM SUSP 30 ML UDC PO PRN (09:30)
--- NOTE | 2024-02-20 13:54 | Discharge Summary ---
Date of Service February 20, 2024 Admission HPI (Per Admitting) Lumbar radiculopathy right L5-S1 Principal Diagnosis Same as "Discharge Diagnosis" noted below under Discharge Instructions. Discharge Exam . Discharge Data Procedures Performed Operation Date: 02/18/24 07:15 Actual Procedures p L5-S1 Transforminal Lumbar Interbody Fusion with Decompression and Posterior Instrumentation Fusion(Not Applicable) - Vidal Watters MD Ordered Studies 02/18/24 07:15 FL lumbar spine 2-3V Routine Hospital Course (1) Status post lumbar spine surgery for decompression of spinal cord: (2) Neuroforaminal stenosis of lumbosacral spine: Right L5-S1 TLIF, posterior instrumentation and fusion. PG Care Time/CCT Total # of Minutes Spent Total Time Spent with Patient: Total time spent is greater than 50% in coordination of care (as documented) at patient's floor/unit and/or counseling patient: Discharge Plan Discharge Items Patient Disposition: Home - Home Health Services Reason For Visit: SURGERY Discharge Diagnosis: Same as admission diagnosis, right L5-S1 radiculopathy, dropfoot. Condition on Discharge: Good Activity: As commented below Lifting: No more than 10 pounds Bathing: May shower/bathe in 3 days Sexual Activity: Wait until after follow-up appointment Driving/Machine Use: Resume 3 days after discharge Weightbearing: Full weightbearing Non-emergency contact: Surgeon Call non-emergency contact if: your pain is worsening Follow-up/Referrals: Rebekah Dias CRNP [Primary Care Provider] - Diet: Regular Addtl Attending Provider Instructions: Oxycodone prescription to be sent through ambulatory chart. Follow-up in 2 weeks. Pending Studies at Discharge: No Stand-Alone Forms: [facility] [employer] [facility] [employer], Smoking Cessation Medications and DC Order Prescriptions: Continued gabapentin 600 mg tablet 600 mg PO TID Qty: 90 2RF cetirizine 10 mg tablet 10 mg PO QAM sertraline [Zoloft] 100 mg tablet 100 mg PO QAM calcium carbonate-vitamin D3 600 mg(1,500mg) -200 unit Tablet 1 tab PO QAM acetaminophen 500 mg Capsule 1,500 mg PO DIRECTED PRN (Reason: Pain) cholecalciferol (vitamin D3) 25 mcg (1,000 unit) tablet 25 mcg PO DAILY albuterol sulfate 90 mcg/actuation HFA aerosol inhaler 2 puff INHALATION .Q4-6H PRN (Reason: Shortness Of Breath Or Wheezing) duloxetine 60 mg capsule,delayed release(DR/EC) 60 mg PO QAM famotidine 20 mg tablet 20 mg PO BID lansoprazole 30 mg capsule,delayed release(DR/EC) 30 mg PO QAM buspirone 5 mg tablet 10 mg PO BID sucralfate 1 gram tablet 1 g PO ACHS PRN (Reason: Heartburn) pregabalin 150 mg capsule 150 mg PO BID Trelegy Ellipta 100-62.5-25 mcg blister with device 1 inh INHALATION QAM Held meloxicam 15 mg tablet 15 mg PO DAILY Qty: 30 1RF Hold Instructions: Resume on 04/27/24. Rx Instructions: with meal. No Action oxycodone-acetaminophen 5-325 mg tablet 1 - 2 tab PO TID PRN (Reason: pain) Qty: 24 0RF Rx Instructions: Take 1-2 tablets three times daily as needed Discharge Orders: Discharge Order (Routine); Ordered 02/21/24 Ordered By: Vidal Watters Admission Data Admit Date/Time: 02/18/24 14:29 Attending Provider: Vidal Watters Admit Provider: Vidal Watters Primary Care Provider: Rebekah Dias Other Interventions: Discharge Summary Assessment (RN) Last Done: 02/21/24 13:14
[2024-02-20] MEDS: hydrOXYzine HCl 25 MG TAB PO PRN (20:49)
[2024-02-21 07:52] VITALS: PULSE 101; RESP 16; TEMP 99.3; O2SAT 94
[2024-02-21] MEDS: SUCRALFATE 1 GM TAB PO PRN (07:54)
--- NOTE | 2024-02-21 10:34 | Orthopedic Progress Note ---
Date of Service February 21, 2024 Subjective Patient seen and examined, she notes that she has had some subtle improvement since yesterday, she still is having difficulty with the right leg, no worse than what it was prior to the surgery but without significant improvement since yesterday. Still with continued weakness in the right lower extremity that was present prior to the surgery. Right foot with no active plantar dorsiflexion, unchanged from preop. Incision site is unremarkable, dressing removed. Impression/plan: Patient still with having some difficulty with mobilization, I discussed with her that at this time we will have to see whether or not she needs to go to rehabilitation versus able to return home. Will see how she does with physical therapy today, and go along with what ever recommendations are provided. The patient may begin showering tomorrow. Review of Systems All systems reviewed & are unremarkable except as noted in HPI & below. Physical Exam . Results & Data Results & Data Laboratory Results . Diagnostic Findings . PG Care Time/CCT Total # of Minutes Spent Total Time Spent with Patient: Total time spent is greater than 50% in coordination of care (as documented) at patient's floor/unit and/or counseling patient: Coding Level of Care Code 64155 Post Operative Follow-Up
[2024-02-21 13:15] VITALS: BP 129/82
== END 2024-02-21 13:56 | disposition home health service (06) | DRG 402 ==
LOC: ASU 05:51 → 3E 14:29